=== PATIENT | female | born 1950 | race Caucasian/White ===

== ENCOUNTER 2023-10-17 18:56 | Emergency (ER) | payer MEDICARE, OTHER ==
[2023-10-17 19:51] LABS: BASOPHILS ABSOLUTE AUTO 0.1 K/mm3 (0.0-0.2); BASOPHILS PERCENT AUTO 0.9 % (0.0-1.0); EOSINOPHILS ABSOLUTE AUTO 0.2 K/mm3 (0.0-0.4); EOSINOPHILS PERCENT AUTO 2.2 % (0.0-6.0); HEMATOCRIT 38.7 % (37.0-47.0); HEMOGLOBIN 12.8 gm/dl (12.0-16.0); IMMATURE GRAN ABSOLUTE AUTO 0.04 K/mm3 (0.00-0.05); IMMATURE GRAN PERCENT AUTO 0.4 % (0.0-0.4); LYMPHOCYTES ABSOLUTE AUTO 2.8 K/mm3 (1.0-4.8); LYMPHOCYTES PERCENT AUTO 27.2 % (24.0-44.0); MEAN CORPUSCULAR HEMOGLOBIN 30.3 pg (28.0-32.0); MEAN CORPUSCULAR HGB CONC 33.1 g/dl (32.0-36.0); MEAN CORPUSCULAR VOLUME 91.7 fl (83.0-99.0); MEAN PLATELET VOLUME 9.6 fl (9.4-12.3); MONOCYTES ABSOLUTE AUTO 0.9 K/mm3 (0.0-0.8); MONOCYTES PERCENT AUTO 8.3 % (0.0-8.0); NEUTROPHILS ABSOLUTE AUTO 6.3 K/mm3 (1.8-7.7); PLATELET COUNT,PLT 294 K/mm3 (150-400); RED BLOOD CELL COUNT 4.22 M/mm3 (4.10-5.30)
[2023-10-17 19:58] LABS: A/G RATIO 0.9 (1-2); ALBUMIN 3.7 g/dl (3.4-5.0); ANION GAP 14.4 (5-15); BILIRUBIN TOTAL 0.3 mg/dL (0.2-1.0); BUN/CREATININE RATIO 11.7 (14-18); CALCIUM 9.1 mg/dL (8.5-10.1); CREATININE 1.2 mg/dL (0.55-1.02); EST CRCL DRUG DOSING (CG) 34.02 mL/min; POTASSIUM,K 3.4 mEq/L (3.5-5.1); PROTEIN TOTAL,TP 7.8 g/dl (6.4-8.2)
[2023-10-17] MEDS: Sodium Chloride 0.9% 1,000 ML IV STA (19:58)
[2023-10-17] MEDS: HYDROmorphone 0.5 MG/0.5 ML Syringe IVPUSH ONE ×2 (19:58→21:07)
[2023-10-17] MEDS: Sodium Chloride 0.9% 10 ML Syringe FLUSH PRN (19:59)
[2023-10-17] MEDS: Ondansetron 4 MG/2 ML SDV IVPUSH ONE (19:59)
[2023-10-17 20:26] LABS: APPEARANCE,URINE CLEAR (Clear); BILIRUBIN,URINE NEGATIVE (Negative); COLOR,URINE YELLOW (Yellow); GLUCOSE,URINE NEGATIVE (Negative); KETONES,URINE NEGATIVE (Negative); LEUKOCYTE ESTERASE,URINE TRACE (Negative); NITRITE,URINE NEGATIVE (Negative); OCCULT BLOOD,URINE NEGATIVE (Negative); PROTEIN,URINE NEGATIVE (Negative); UROBILINOGEN,URINE 0.2 (0.2-1.0)
[2023-10-17 20:28] LABS: BACTERIA,URINE FEW /hpf (FEW); MUCUS,URINE FEW /hpf (FEW); RBC,URINE 0-5 /hpf (0-5); SQUAMOUS EPITHELIAL CELLS,UR 0-5 /hpf (0-5); WBC,URINE 0-5 /hpf (0-5)
[2023-10-17] MEDS: Ketorolac 30 MG/ML SDV IVPUSH ONE (20:56)
[2023-10-17 22:01] VITALS: BP 143/75; PULSE 68
== END 2023-10-17 22:01 | disposition home or self-care (01) ==
LOC: JD.ED 18:56
DX: R10.11 Right upper quadrant pain (principal); Z87.891 Personal history of nicotine dependence; Z90.710 Acquired absence of both cervix and uterus; Z79.899 Other long term (current) drug therapy; Z88.6 Allergy status to analgesic agent
CPT/HCPCS: 36415; 74176; 76705; 80053; 81001; 83690; 85025; 96361; 96374; 96375; 96376; 99284; J1170; J2405; J3490; J7030

== ENCOUNTER 2024-05-16 07:59 | Day surgery (SDC) | payer MEDICARE, OTHER ==
[2024-05-16] MEDS: Polymyxin B/Trimethoprim 10 ML Bottle EYERT SCH (09:25)
[2024-05-16] MEDS: Brimonidine 0.2% Ophth Soln 5 ML Bottle EYERT SCH (09:30)
[2024-05-16] MEDS: Phenylephrine 2.5% Ophth Soln 2 ML Bot EYERT SCH (09:36)
[2024-05-16] MEDS: Tropicamide 1% Ophth Soln 3 ML Bottle EYERT SCH (09:40)
[2024-05-16] MEDS: Tetracaine HCl/PF 0.5% 4 ML Bottle EYEBOTH SCH (10:41)
[2024-05-16] MEDS: Lidocaine 1% PF 2 ML SDV INJECT SCH (11:01)
[2024-05-16] MEDS: Cefuroxime 10 MG/ML SYRINGE EYERT SCH (11:13)
[2024-05-16] MEDS: Pilocarpine 4% Ophth Soln 15 ML Bot EYERT SCH (11:14)
[2024-05-16 13:39] VITALS: BP 155/94; PULSE 63
== END 2024-05-16 11:22 | disposition home or self-care (01) ==
LOC: JD.SDS 07:59
PROVIDERS: ATTEND Ophthalmology
DX: H25.813 Combined forms of age-related cataract, bilateral (principal); I10 Essential (primary) hypertension; E78.2 Mixed hyperlipidemia; H35.3132 Nonexudative age-related macular degeneration, bilateral, intermediate dry stage; H35.363 Drusen (degenerative) of macula, bilateral; H11.153 Pinguecula, bilateral; H43.813 Vitreous degeneration, bilateral; H02.831 Dermatochalasis of right upper eyelid; H02.834 Dermatochalasis of left upper eyelid; Z79.899 Other long term (current) drug therapy
CPT/HCPCS: 66984; A9270; J0697; J3490; V2632

== ENCOUNTER 2024-06-13 07:44 | Day surgery (SDC) | payer MEDICARE, OTHER ==
[2024-06-13] MEDS: Polymyxin B/Trimethoprim 10 ML Bottle EYELF SCH (07:57)
[2024-06-13] MEDS: Brimonidine 0.2% Ophth Soln 5 ML Bottle EYELF SCH (08:05)
[2024-06-13] MEDS: Phenylephrine 2.5% Ophth Soln 2 ML Bot EYELF SCH (08:09)
[2024-06-13] MEDS: Tropicamide 1% Ophth Soln 3 ML Bottle EYELF SCH (08:15)
[2024-06-13] MEDS: Tetracaine HCl/PF 0.5% 4 ML Bottle EYEBOTH SCH (10:37)
[2024-06-13] MEDS: Lidocaine 1% PF 2 ML SDV INJECT SCH (10:49)
[2024-06-13] MEDS: Cefuroxime 10 MG/ML SYRINGE EYELF SCH (11:00)
[2024-06-13] MEDS: Pilocarpine 4% Ophth Soln 15 ML Bot EYELF SCH (11:01)
[2024-06-13 11:09] VITALS: BP 159/74; PULSE 73
== END 2024-06-13 11:10 ==
LOC: JD.SDS 07:44
PROVIDERS: ATTEND Ophthalmology
DX: H25.812 Combined forms of age-related cataract, left eye (principal); H52.31 Anisometropia; I10 Essential (primary) hypertension; E78.2 Mixed hyperlipidemia; Z79.899 Other long term (current) drug therapy
CPT/HCPCS: 66984; A9270; J0697; 00142; 99100; J3490; V2632